=== PATIENT | female | born 1930 | race Caucasian/White ===

== ENCOUNTER 2019-08-28 11:52 | Observation (INO) | payer MEDICARE, BC ==
[~2019-08-28] VITALS: Ht 157.5 cm; Wt 46.0 kg
[~2019-08-28 11:52] MED LIST: DILT120C64 PO; HYDR-3240 PO; OMEP-110 PO
[2019-08-28 12:12] LABS: MEAN CORPUSCULAR HEMOGLOBIN 31.6 pg (27.0-34.8); MEAN CORPUSCULAR HGB CONC 33.1 g/dL (32.4-35.8); MEAN CORPUSCULAR VOLUME 95.3 fL (80-100); MEAN PLATELET VOLUME 9.9 fL (7.4-10.4); PLATELET COUNT 227 x10^3/uL (130-400); RED BLOOD COUNT 3.87 x10^6/uL (3.82-5.3); RED CELL DISTRIBUTION WIDTH 13.6 % (9.6-15.2)
--- NOTE | 2019-08-28 12:17 | NUR ---
BREAK RN: PT RESTING, COMMUNICATIONS DESIGNER ON SINUS AT 56, "I THINK I PASSED OUT SITTING AT THE DINNING ROOM TABLE" CONTINOUS SP02 AT 100% ON 2LNC AND CYCLE VS. CALL LIGHT PLACED. PT VERBALIZED NO NEEDS AT THIS TIME.
[2019-08-28 12:23] LABS: ALANINE AMINOTRANSFERASE 23 U/L (12-78); ALBUMIN 3.6 g/dL (3.4-5.0); ANION GAP 7 mmol/L (5-15); CALCIUM 8.3 mg/dL (8.5-10.1); CHLORIDE 103 mmol/L (98-107); CREATININE 0.69 mg/dL (0.55-1.02)
[2019-08-28 12:27] LABS: ALKALINE PHOSPHATASE 76 U/L (45-117); BILIRUBIN,TOTAL 0.4 mg/dL (0.2-1.0); TROPONIN I < 0.015 ng/mL (0.000-0.045)
[2019-08-28 12:29] LABS: BASOPHILS # (AUTO) 0.03 x10^3/uL (0-0.1); BASOPHILS % (AUTO) 1 % (0-1); EOSINOPHILS # (AUTO) 0.03 x10^3/uL (0-0.4); EOSINOPHILS % (AUTO) 1 % (1-7); LYMPHOCYTES # (AUTO) 1.19 x10^3/uL (1-3.4); LYMPHOCYTES % (AUTO) 23 % (22-44); MD SCAN; MONOCYTES # (AUTO) 0.66 x10^3/uL (0.2-0.8); MONOCYTES % (AUTO) 13 % (2-9); NEUTROPHILS # (AUTO) 3.18 x10^3/uL (1.8-6.8); NEUTROPHILS % (AUTO) 62 % (42-75)
--- NOTE | 2019-08-28 12:34 | NUR ---
BREAK RN: PT DENIES SI/SA. REPORT TO DR. HERNANDEZ
--- NOTE | 2019-08-28 14:28 | NUR ---
Pt transfered with assist x 1 to wheelchair from [facility] to bathroom. Pt back to room and reconnected to NIBP cuff, continous pulse ox monitor, and youth nutritional monitor. Bedrails up x 2 and call light within reach.
[2019-08-28] MEDS ORDERED: ONDANSETRON ODT 4 MG PO PRN (15:30)
[2019-08-28] MEDS ORDERED: ACETAMINOPHEN 325 MG TABLET PO PRN (15:30)
[2019-08-28] MEDS ORDERED: DOCUSATE 100 MG CAPSULE PO PRN (15:30)
--- NOTE | 2019-08-28 15:47 | NUR ---
Called housekeeping for hospital bed. Ordered cardiac diet tray for dinner. NADN. No other needs expressed.
--- NOTE | 2019-08-28 16:20 | NUR ---
Pt transfered from [facility] to hospital bed. Provided report to JAYNE Damon. All questions answered. Pt ready to transfer from ED to floor. NADN. No needs expressed.
--- NOTE | 2019-08-28 16:40 | NUR ---
Pt transfered from ED to floor on hospital bed with food tray and left with all personal belongings. NADN. No other needs expressed.
[2019-08-28 16:53] VITALS: BP 130/43
--- NOTE | 2019-08-28 18:22 | NUR ---
Pt requesting floor staff to locate eyeglasses in ED. Pt did not arrive with any glasses by EMS from home to ED. Pt came with red purse, a blue long sleeve shirt, and black sandle shoes. All personal belongings went up with patient on transfer from ED to floor. No belongings were left in ED.
[2019-08-28 20:32] VITALS: BP 126/62
[2019-08-29 02:51] VITALS: BP 104/47
[2019-08-29 04:59] LABS: ALANINE AMINOTRANSFERASE 18 U/L (12-78); ALBUMIN 3.2 g/dL (3.4-5.0); ANION GAP 7 mmol/L (5-15); CALCIUM 8.7 mg/dL (8.5-10.1); CHLORIDE 102 mmol/L (98-107); CREATININE 0.67 mg/dL (0.55-1.02)
[2019-08-29 05:01] LABS: ALKALINE PHOSPHATASE 71 U/L (45-117); BILIRUBIN,TOTAL 0.5 mg/dL (0.2-1.0); TOTAL PROTEIN 6.2 g/dL (6.4-8.2)
[2019-08-29 08:00] VITALS: BP 128/55
[2019-08-29] MEDS ORDERED: SENNA/DOCUSATE TABLET PO SCH (09:00)
[2019-08-29 14:00] VITALS: BP 126/56
== END 2019-08-29 16:50 | disposition home or self-care (01) ==
LOC: ED 15:04 → INTOOBSV 15:05 → EDIP 15:05 → 5SO 16:48 → DCLOUNGE 08-29 16:35
PROVIDERS: ADMIT Internal Medicine; ATTEND Hospitalist
DX: R55 Syncope and collapse (principal); I49.9 Cardiac arrhythmia, unspecified; F17.200 Nicotine dependence, unspecified, uncomplicated; Z88.2 Allergy status to sulfonamides; Z88.1 Allergy status to other antibiotic agents; Z88.5 Allergy status to narcotic agent
CPT/HCPCS: 36415; 71045; 80053; 83735; 83880; 84100; 84484; 85025; 93005; 99284; G0378